=== PATIENT | male | born 1960 | race Caucasian/White ===

== ENCOUNTER 2017-04-19 13:03 | Emergency (ER) | payer BC ==
--- NOTE | ~2017-04-19 | EKG ---
PATIENT: BOGDAN FOSTER UNIT #: [id number] Ventricular Rate: 90 BPM Atrial Rate: 90 BPM P-R Interval: 166 ms QRS Duration: 92 ms Q-T Interval: 382 ms QTC Calculation(Bezet): 467 ms P [place]: 48 degrees Calculated R [place]: 10 degrees Calculated T [place]: 54 degrees Diagnosis Line: Normal sinus rhythm Diagnosis Line: Normal ECG Diagnosis Line: When compared with ECG of 19-APR-2017 13:05, Diagnosis Line: T wave inversion no longer evident in Inferior Diagnosis Line: leads Diagnosis Line: Confirmed by LESLIE TEMPLE MD ([id number]) on Diagnosis Line: 04/20/2017 1:38:49 PM INTERPRETING MD: MAVERICK ARAYA
--- NOTE | ~2017-04-19 | CR72 ---
[facility] A Service [facility] RADIOLOGY TEXT RESULTS PATIENT: BOGDAN FOSTER LOCATION: SED : 56 UNIT #: [id number] AGE: [address]: Basil Santillan MD SEX: M ORDER DR: [id number] [place] [id number] E MR#: [id number] Acc #: [id number] NAME: BOGDAN FOSTER : 1960 SEX: M STUDY DATE/TIME: 04/19/2017 14:04 UNIT: SED ROOM: STUDY DESCRIPTION: CR Chest Single View Portable Attending Physician: Basil Santillan M.D. Ordering Physician: Basil Santillan M.D. Primary Care Physician: Hira Robles M.D. MEDICAL IMAGING REPORT This report is preliminary unless electronic signature is present. EXAM AP chest, 04/19/2017. HISTORY Intermittent chest pain and tingling. Symptoms began last evening and worse today. COMPARISON CT abdomen and pelvis, 08/12/2011. FINDINGS Mild asymmetric elevation of the left hemidiaphragm. Heart size within normal limits. No acute airspace disease. No pleural effusion or pneumothorax. No acute osseous abnormalities are identified. IMPRESSION Mild elevation of left hemidiaphragm is thought to be unchanged compared to the CT abdomen from 08/12/2011. No acute chest findings. Dictated by... Roseanne Hall M.D. THIS IS AN ELECTRONICALLY VERIFIED REPORT Roseanne Hall M.D. at 04/20/2017 8:33 AM CARTER/vladimir TD: 04/19/2017 19:09 JOB #: [id number] MEDICAL IMAGING REPORT [facility] A Service [facility] RADIOLOGY TEXT RESULTS PATIENT: BOGDAN FOSTER LOCATION: SED : 56 UNIT #: [id number] AGE: [address]: Basil Santillan MD SEX: M ORDER DR: Page 1 of 1
--- NOTE | ~2017-04-19 | EKG ---
PATIENT: BOGDAN FOSTER UNIT #: [id number] Ventricular Rate: 97 BPM Atrial Rate: 97 BPM P-R Interval: 172 ms QRS Duration: 98 ms Q-T Interval: 358 ms QTC Calculation(Bezet): 454 ms P [place]: 2 degrees Calculated R [place]: 33 degrees Calculated T [place]: -5 degrees Diagnosis Line: Normal sinus rhythm Diagnosis Line: Possible Left atrial enlargement Diagnosis Line: Borderline ECG Diagnosis Line: When compared with ECG of 26-AUG-2013 11:30, Diagnosis Line: T wave inversion now evident in Inferior leads Diagnosis Line: Confirmed by LESLIE TEMPLE MD ([id number]) on Diagnosis Line: 04/20/2017 1:38:45 PM INTERPRETING MD: MAVERICK ARAYA
--- NOTE | ~2017-04-19 | EKG ---
PATIENT: BOGDAN FOSTER UNIT #: [id number] Ventricular Rate: 74 BPM Atrial Rate: 74 BPM P-R Interval: 168 ms QRS Duration: 90 ms Q-T Interval: 390 ms QTC Calculation(Bezet): 432 ms P [place]: 43 degrees Calculated R [place]: 9 degrees Calculated T [place]: 50 degrees Diagnosis Line: Normal sinus rhythm with sinus arrhythmia Diagnosis Line: Nonspecific ST abnormality Diagnosis Line: Abnormal ECG Diagnosis Line: When compared with ECG of 19-APR-2017 13:39, Diagnosis Line: No significant change was found Diagnosis Line: Confirmed by LESLIE TEMPLE MD ([id number]) on Diagnosis Line: 04/20/2017 1:38:54 PM INTERPRETING MD: MAVERICK ARAYA
[~2017-04-19 13:03] MED LIST: CIPRO PO; METRONIDAZOLE PO; NO MEDICATIONS; PERCOCET PO; VICODIN 5/1 TAB 5/50 PO
[2017-04-19 13:39] LABS: POC - CKMB 1.8 ng/mL (0.0-7.9); POC - TROPONIN 0.05 ng/mL (<=0.05)
[2017-04-19 13:43] LABS: INR 1.1
[2017-04-19 13:45] LABS: BASOPHIL# 0.1 X10e3 (0-0.3); BASOPHIL% 0.8 % (0-2.5); EOSINOPHIL# 0.3 X10e3 (0-0.7); EOSINOPHIL% 3.3 % (0.0-7.0); HEMATOCRIT 50.4 % (38.0-50.0); HEMOGLOBIN 17.2 gm/dL (13.0-16.0); LYMPHOCYTE# 2.7 X10e3 (1.0-3.5); LYMPHOCYTE% 26.6 % (17.0-45.0); MEAN CELL VOLUME 84.5 FL (83-96); MEAN CORPUSCULAR HEMOGLOBIN 28.8 PG (28-34); MEAN CORPUSCULAR HGB CONC 34.1 g/dL (30-36); MEAN PLATELET VOLUME 8.4 FL (6.5-11.5); NEUTROPHIL# 6.1 X10e3 (1.5-7.1); NEUTROPHIL% 59.3 % (40-75); PLATELET COUNT 209 X10e3 (140-420); RED BLOOD COUNT 5.97 X10e (3.90-5.60); RED CELL DISTRIBUTION WIDTH 14.5 % (11.0-15.5); WHITE BLOOD COUNT 10.3 X10e3 (4.0-10.5)
[2017-04-19 13:46] LABS: DIFF IND NO
[2017-04-19 13:50] LABS: ALBUMIN SERUM 4.9 g/dL (3.5-5.0); BILIRUBIN, DIRECT 0.1 mg/dL (0.0-0.2); BILIRUBIN,INDIRECT 0.6 mg/dL (0.0-0.9); BILIRUBIN,TOTAL 0.7 mg/dL (0.2-2.0); CALCIUM SERUM 9.7 mg/dL (8.4-10.2); GLOM FILT RATE Estimated 82.6 mL/min (>60); PARTIAL THROMBOPLASTIN TIME 27.3 SECONDS (25.6-38.1); POTASSIUM 3.6 mmol/L (3.5-5.1); PROTEIN TOTAL SERUM 7.8 g/dL (6.0-8.3)
[2017-04-19 15:07] LABS: POC - CKMB <1.0 ng/mL (0.0-7.9); POC - TROPONIN <0.05 ng/mL (<=0.05)
== END 2017-04-19 16:24 ==
LOC: SED 13:03
PROVIDERS: Emergency Medicine
DX: R07.9 Chest pain, unspecified (principal); Z88.0 Allergy status to penicillin
CPT/HCPCS: 36415; 71010; 80048; 80076; 82553; 84484; 85025; 85610; 85730; 93005; 99285

== ENCOUNTER → 2017-04-23 | Outpatient (CLI) | payer BC ==
[2017-04-23 13:04] LABS: ALBUMIN SERUM 4.3 g/dL (3.5-5.0); BILIRUBIN,TOTAL 1.1 mg/dL (0.2-2.0); BUN/CREATININE RATIO 16.92; CALCIUM SERUM 8.9 mg/dL (8.4-10.2); CREATININE SERUM 1.3 mg/dL (0.6-1.4); GLOM FILT RATE Estimated 60.2 mL/min (>60); POTASSIUM 4.1 mmol/L (3.5-5.1); PROTEIN TOTAL SERUM 7.7 g/dL (6.0-8.3)
== END | disposition home or self-care (01) ==
LOC: SLAB 12:19
PROVIDERS: Nurse Practitioner
DX: N17.9 Acute kidney failure, unspecified (principal); R74.0 Nonspecific elevation of levels of transaminase and lactic acid dehydrogenase [LDH]
CPT/HCPCS: 36415; 80053

== ENCOUNTER → 2017-06-01 | Outpatient (CLI) | payer BC ==
[2017-06-01 10:11] LABS: BUN/CREATININE RATIO 10.9; CALCIUM SERUM 8.9 mg/dL (8.4-10.2); CREATININE SERUM 1.1 mg/dL (0.6-1.4); GLOM FILT RATE Estimated 73.6 mL/min (>60); POTASSIUM 4.3 mmol/L (3.5-5.1)
== END | disposition home or self-care (01) ==
LOC: SLAB 09:09
PROVIDERS: Internal Medicine Cardiovascular Disease
DX: I25.10 Atherosclerotic heart disease of native coronary artery without angina pectoris (principal)
CPT/HCPCS: 36415; 80048

== ENCOUNTER → 2017-06-26 | Outpatient (CLI) | payer BC ==
[2017-06-26 13:56] LABS: CALCIUM SERUM 8.5 mg/dL (8.4-10.2); GLOM FILT RATE Estimated 82.6 mL/min (>60); POTASSIUM 4.2 mmol/L (3.5-5.1)
[2017-06-28 03:13] LABS: MICROALB UR (PNL) 0.3 mg/dL (***)
== END | disposition home or self-care (01) ==
LOC: SLABONLY 10:15
PROVIDERS: Internal Medicine Cardiovascular Disease
DX: I25.10 Atherosclerotic heart disease of native coronary artery without angina pectoris (principal)
CPT/HCPCS: 36415; 80048; 80061; 82043; 82570; 83036; 84460